=== PATIENT | male | born 1980 | race Hispanic/Latino ===

== ENCOUNTER 2023-09-29 14:34 | Emergency (ER) | payer SELFPAY ==
[2023-09-29] MEDS ORDERED: Ketorolac Tromethamine 30 MG (1 mL) VIAL ONE (16:37)
== END 2023-09-29 17:18 | disposition home or self-care (01) ==
LOC: ERS 14:34
DX: K43.9 Ventral hernia without obstruction or gangrene (principal); I10 Essential (primary) hypertension
CPT/HCPCS: 96372; 99283; J1885